=== PATIENT | female | born 1945 | race African-American/Black ===

== ENCOUNTER 2017-03-19 10:03 | Emergency (ER) | payer OTHER, MEDICAID ==
[~2017-03-19] VITALS: Ht 165.1 cm; Wt 95.5 kg
[~2017-03-19 10:03] MED LIST: AMLO10TA55 PO; ASPI-996 PO; BENA20TA3 PO
[2017-03-19] MEDS ORDERED: HYDROCODONE/ACETAMINOPHEN 5-325 MG TABLET PO ONE (11:45)
[2017-03-19 12:16] LABS: ADD UA MICROSCOPIC YES; APPEARANCE,URINE CLOUDY (CLEAR); GLUCOSE, URINE (UA) NEGATIVE (NEGATIVE); KETONES,URINE NEGATIVE (NEGATIVE); LEUKOCYTE ESTERASE ,URINE NEGATIVE (NEGATIVE); OCCULT BLOOD,URINE MODERATE (NEGATIVE); PROTEIN,URINE NEGATIVE (NEGATIVE)
[2017-03-19 12:21] LABS: SQUAMOUS EPITHELIAL CELL,UR Few /LPF (None Seen); WBC,URINE 0-2 /HPF (0-5)
[2017-03-19 13:34] VITALS: BP 110/61
== END 2017-03-19 13:58 | disposition home or self-care (01) ==
LOC: EMS 10:04
DX: S33.5XXA Sprain of ligaments of lumbar spine, initial encounter (principal); M62.830 Muscle spasm of back; I10 Essential (primary) hypertension; Z79.82 Long term (current) use of aspirin; X58.XXXA Exposure to other specified factors, initial encounter; Y93.89 Activity, other specified; Y92.89 Other specified places as the place of occurrence of the external cause; Y99.8 Other external cause status
CPT/HCPCS: 99283

== ENCOUNTER 2020-06-10 18:55 | Emergency (ER) | payer OTHER ==
[~2020-06-10] VITALS: Ht 165.1 cm; Wt 100.0 kg
[~2020-06-10 18:55] MED LIST changes: +ASPI-1515 PO; -ASPI-996 PO; -BENA20TA3 PO
[2020-06-10] MEDS ORDERED: NAPR-1025 PO (19:06)
[2020-06-10] MEDS ORDERED: ASPI-1111 PO (19:06)
[2020-06-10] MEDS ORDERED: HYDR-1475 PO (19:06)
[2020-06-10] MEDS ORDERED: ACET-2142 PO (19:06)
[2020-06-10] MEDS ORDERED: SODIUM CHLORIDE 0.9% 1,000 ML IV ONE (19:45)
[2020-06-10 20:11] LABS: BASOPHILS % (AUTO) 0.9 % (0.0-2.0); EOSINOPHILS % (AUTO) 2.7 % (1.0-6.0); HEMATOCRIT 42.5 % (36-46); HEMOGLOBIN 13.8 g/dL (12.0-16.0); LYMPHOCYTES # (AUTO) 1.4 K/uL (1.0-4.8); MEAN CORPUSCULAR HEMOGLOBIN 30.2 pg (26.0-34.0); MEAN CORPUSCULAR HGB CONC 32.6 G/dL (31.0-37.0); MEAN CORPUSCULAR VOLUME 93 fL (80-100); MONOCYTES # (AUTO) 0.6 K/uL (0.1-1.0); MONOCYTES % (AUTO) 9.4 % (2.0-9.0); PLATELET COUNT (AUTO) 211 K/uL (150-450); RED BLOOD CELL COUNT(AUTO) 4.58 MIL/uL (4.00-5.20); RED CELL DISTRIBUTION WIDTH 14.1 % (11.5-14.5)
[2020-06-10 20:13] LABS: APPEARANCE,URINE CLOUDY (CLEAR); BILIRUBIN,URINE NEGATIVE (NEGATIVE); GLUCOSE, URINE (UA) NEGATIVE (NEGATIVE); KETONES,URINE NEGATIVE (NEGATIVE); LEUKOCYTE ESTERASE ,URINE NEGATIVE (NEGATIVE); NITRATE,URINE NEGATIVE (NEGATIVE); OCCULT BLOOD,URINE SMALL (NEGATIVE); PROTEIN,URINE NEGATIVE (NEGATIVE)
[2020-06-10 20:23] LABS: CALCIUM, TOTAL 10.1 mg/dL (8.8-10.5); CREATININE 1.19 mg/dL (0.60-1.30); POTASSIUM 3.2 mmol/L (3.5-5.1)
[2020-06-10 20:25] LABS: BACTERIA,URINE Rare /HPF (None Seen); SQUAMOUS EPITHELIAL CELL,UR Few /LPF (None Seen); WBC,URINE 0-2 /HPF (0-5)
[2020-06-10 20:29] LABS: BILIRUBIN,TOTAL 0.3 mg/dL (0.1-1.0); TOTAL PROTEIN, SERUM 8.5 g/dL (6.4-8.2)
[2020-06-10] MEDS: ACETAMINOPHEN 500 MG TABLET PO ONE ×2 (21:31→21:37)
[2020-06-10] MEDS ORDERED: ACETAMINOPHEN 500 MG TABLET PO ONE (21:45)
[2020-06-10 22:05] VITALS: BP 126/68
== END 2020-06-10 22:15 | disposition home or self-care (01) ==
LOC: EMS 18:55
DX: S39.012A Strain of muscle, fascia and tendon of lower back, initial encounter (principal); M16.0 Bilateral primary osteoarthritis of hip; X50.9XXA Other and unspecified overexertion or strenuous movements or postures, initial encounter; Y93.89 Activity, other specified; Y92.89 Other specified places as the place of occurrence of the external cause; Y99.8 Other external cause status
CPT/HCPCS: 72110; 73521; 93005; J7030